=== PATIENT | male | born 1945 | race Caucasian/White ===

== ENCOUNTER → 2017-01-12 | Outpatient (CLI) | payer MEDICARE, BC ==
--- NOTE | 2017-01-12 17:11 | XR ---
EXAMINATION TYPE: XR chest 2V DATE OF EXAM: 01/12/2017 COMPARISON: 11/18/2015 HISTORY: Weight loss TECHNIQUE: Frontal and lateral views of the chest are obtained. FINDINGS: Heart is normal. Thoracic aorta is atheromatous. There is no heart failure. There is sligh t blunting of left costophrenic angle and linear density at the left lung base. There are no hilar ma sses. Bony thorax is intact. IMPRESSION: There is pleural diaphragmatic reaction at the left lung base that is increased compared to last exam. Normal heart.
== END | disposition home or self-care (01) ==
LOC: RADXRYALE 16:51
PROVIDERS: ATTEND Family Medicine
DX: J44.9 Chronic obstructive pulmonary disease, unspecified (principal); R63.4 Abnormal weight loss
CPT/HCPCS: 71020

== ENCOUNTER → 2017-01-18 | Outpatient (CLI) | payer MEDICARE, BC ==
[2017-01-18 17:45] LABS: Blood Urea Nitrogen 14 mg/dL (9-20); Non-African American GFR(MDRD) >60 (>60 ml/min/1.73 sqM)
--- NOTE | 2017-01-19 07:09 | CT ---
EXAMINATION TYPE: CT abdomen pelvis w con DATE OF EXAM: 01/18/2017 REFERENCE: NONE HISTORY: R63.4 Weight Loss HISTORY: Unintentional weight loss of 15lbs x2 years. Denies any abdominal pain. REFERENCE: NONE CT DLP: 533.6 mGy Automated exposure control for dose reduction was used. TECHNIQUE: Helical acquisition through the abdomen and pelvis was obtained following the oral ingesti on of with Oral Contrast and following intravenous administration of 100 mL of Omnipaque 300. The vannessa a was reformatted in axial, coronal and sagittal projections. FINDINGS: There is atelectatic change present at the lung bases. There is minimal inflammatory ferguson e in the lateral aspect of the right lower lobe. There is no pleural or pericardial fluid. The heart is not enlarged. There is coronary artery calcification as well as other vascular calcifications. Within the abdomen, there is a 1.4 cm calculus in the neck of the gallbladder. The liver is normal in size without biliary dilatation. The spleen is normal. Both adrenal glands are normal. There is a 4.1 cm, simple appearing cyst in the mid polar region of the left kidney. There is a small er 1 cm cyst in the mid polar region of the same kidney. The right kidney appears normal. The pancreas is unremarkable. There is no significant retroperitoneal, iliac or inguinal adenopathy. The bladder is unremarkable. There are scattered diverticula throughout the sigmoid colon. I do not see evidence of diverticulitis . The appendix is not visualized with certainty. Small bowel caliber is normal. There is no free fluid and no free air There is a direct inguinal hernia present on the right containing fat only. There is degenerative disc disease and facet arthropathy in the lower lumbar spine. No bony destructi ve lesion is seen. IMPRESSION: 1. MINIMAL INFLAMMATORY CHANGE WITHIN THE RIGHT LOWER LOBE. 2. CORONARY ARTERY AND OTHER VASCULAR CALCIFICATIONS. 3. CHOLELITHIASIS. 4. LEFT-SIDED RENAL CYSTIC DISEASE. 5. DIRECT INGUINAL HERNIA ON THE RIGHT CONTAINING FAT ONLY. 6. UNCOMPLICATED DIVERTICULOSIS OF THE SIGMOID COLON. 7. MILD DEGENERATIVE CHANGES WITHIN THE SPINE.
== END | disposition home or self-care (01) ==
LOC: RADCTMAIN 17:08
PROVIDERS: ATTEND Family Medicine
DX: K80.20 Calculus of gallbladder without cholecystitis without obstruction (principal); K57.30 Diverticulosis of large intestine without perforation or abscess without bleeding; K40.90 Unilateral inguinal hernia, without obstruction or gangrene, not specified as recurrent; N28.1 Cyst of kidney, acquired; I25.10 Atherosclerotic heart disease of native coronary artery without angina pectoris
CPT/HCPCS: 82565; 84520; 74177; 36415; Q9967

== ENCOUNTER → 2017-07-13 | Outpatient (CLI) | payer MEDICARE ==
--- NOTE | 2017-07-13 14:16 | XR ---
EXAMINATION TYPE: XR chest 2V DATE OF EXAM: 07/13/2017 COMPARISON: 01/12/2017 INDICATION: COPD short of breath TECHNIQUE: Frontal and lateral views of the chest are obtained. FINDINGS: The heart size is normal. The pulmonary vasculature is normal. Minimal infiltrate is above the diaphragm. Correlate for atelectasis. Pneumonia is considered less li ismael. There is hyperinflation flattening the diaphragms compatible COPD. Retrosternal airspace is sli ghtly prominent.. IMPRESSION: 1. Mild bibasilar atelectasis 2. COPD
== END | disposition home or self-care (01) ==
LOC: RADXRYALE 13:25
PROVIDERS: ATTEND Physician Assistant Medical
DX: J44.9 Chronic obstructive pulmonary disease, unspecified (principal); J98.11 Atelectasis
CPT/HCPCS: 71046